=== PATIENT | male | born 1970 | race Caucasian/White ===

== ENCOUNTER → 2016-03-24 | Outpatient (CLI) | payer OTHER ==
--- NOTE | 2016-03-25 12:48 | XCELERA REPORT ---
[address] [id number] Lower Extremity Arterial Evaluation Name: KATLYN DAVILA Age: 45 yrs Gender: Male : 1970 Patient Status: Preadmit Patient Location: Study Date: 03/24/2016 12:56 PM Procedure: A color flow and duplex scan of the lower extremity arteries was performed bilaterally with velocity and waveform anaylsis. Ankle brachial indicies performed. 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 Biphasic in the Anterior Tibial artery. The ankle-brachial index is 1.17. 0-19 % stenosis is noted at the Anterior Tibial artery. Left Side Arterial Evaluation Normal velocity, waveform and triphasic flow are present, from the Common Femoral artery down to the Posterior Tibial artery. Biphasic in the Dorsalis Pedis artery. The ankle-brachial index is 1.2. 0-19 % stenosis is noted at the Anterior Tibial artery. Interpretation Summary Mild hemodynamically significant lesions in the bilateral lower extremities, on duplex imaging, at rest. : PAULO VELASQUEZ > Booker Mixon
== END ==
LOC: SP 12:45
PROVIDERS: ATTEND Student in an Organized Health Care Education/Training Program
DX: I73.9 Peripheral vascular disease, unspecified (principal)
CPT/HCPCS: 93925